=== PATIENT | female | born 1945 | race Two or more races ===

== ENCOUNTER 2019-02-21 22:05 | Emergency (ER) | payer SELFPAY ==
[~2019-02-21] VITALS: Ht 172.7 cm; Wt 68.0 kg
[2019-02-21] MEDS ORDERED: Tetanus/Diptheria/Pertussis IM ONE (22:15)
[2019-02-21 22:20] VITALS: BP 151/73
--- NOTE | 2019-02-21 22:20 | NUR ---
ED Nurse Note: PT EDGARForrest DON RA [id number] FROM HOME C/O MECHANICAL FALL. PT PRESENTS WITH RIGHT FACE ABRASION AND LACERATION ON THE MEDIAL FOREHEAD. DENIES LOC. PT VSS, NAD. FAMILY AT BEDSIDE. WILL CONTINUE TO MONITOR PATIENT.
--- NOTE | 2019-02-21 23:00 | NUR ---
ED Nurse Note: PT WENT TO CT ACCOMPANIED BY DIVISION ENGINEER VIA WHEELCHAIR.
--- NOTE | 2019-02-21 23:15 | NUR ---
ED Nurse Note: ERMD AT BEDSIDE PERFORMING WOUND DERMABOND APPLIANCE. CLEANED, OPENED, AND PREPPED FOR ERMD.
--- NOTE | 2019-02-21 23:15 | NUR ---
ED Nurse Note: PT BACK FROM CT ACCOMPANIED BY HEEL SPRAYER FIRST VIA WHEELCHAIR.
--- NOTE | 2019-02-21 23:17 | Diagnostic Imaging Report ---
EXAM: CT Head Without Intravenous Contrast CLINICAL HISTORY: PAIN TECHNIQUE: Axial computed tomography images of the head/brain without intravenous contrast. CTDI is 63 mGy and DLP is 1364 mGy-cm. One or more of the following dose reduction techniques were used: automated exposure control, adjustment of the mA and/or kV according to patient size, use of iterative reconstruction technique. COMPARISON: No relevant prior studies available. FINDINGS: Brain: Mild periventricular chronic small vessel disease. Negative for mass, mass-effect or intracranial hemorrhage. Ventricles: Unremarkable. No ventriculomegaly. Bones/joints: Unremarkable. No acute fracture. Soft tissues: Right frontal soft tissue swelling with scalp hematoma, foci of soft tissue gas and a tiny superficial radiopaque foreign body. Sinuses: Unremarkable as visualized. No acute sinusitis. Mastoid air cells: Unremarkable as visualized. No mastoid effusion. IMPRESSION: No acute intracranial abnormality.
--- NOTE | 2019-02-21 23:20 | NUR ---
ED Nurse Note: DR. ELIZABETH REQUESTED FOR A SECOND DERMABOND, STATING "OVERRIDE FOR ONE MORE DERMABOND". OVERRIDE PYXIS FOR SECOND DERMABOND AND GAVE TO DR. ELIZABETH.
--- NOTE | 2019-02-21 23:26 | Diagnostic Imaging Report ---
EXAM: CT Maxillofacial Without Intravenous Contrast CLINICAL HISTORY: PAIN TECHNIQUE: Axial computed tomography images of the face without intravenous contrast. CTDI is 24 mGy and DLP is 564 mGy-cm. One or more of the following dose reduction techniques were used: automated exposure control, adjustment of the mA and/or kV according to patient size, use of iterative reconstruction technique. COMPARISON: No relevant prior studies available. FINDINGS: Bones/joints: No acute fracture. Soft tissues: Right frontal soft tissue injury including swelling, foci of gas and hematoma with tiny radiopaque foreign body superficial lung the anterior margin of the soft tissue swelling. There is also moderate right periorbital and right facial soft tissue swelling. Orbits: Unremarkable. Sinuses: Unremarkable. No air-fluid levels. IMPRESSION: Soft tissue injuries on the right as above. Negative for fracture.
--- NOTE | 2019-02-21 23:41 | Emergency Room Report ---
History of Present Illness General Chief Complaint: Multiple Trauma/Fall Source: Patient Present Illness HPI 73-year-old female presents with mechanical fall hit forehead, no LOC no nausea no vomiting she endorses some head pain, no aggravating leaving factor severity is mild, patient presents for evaluation. Allergies: Coded Allergies: PENICILLINS (Verified Allergy, Unknown, 02/21/19) Patient History Past Medical History: see triage record Reviewed Nursing Documentation: PMH: Agreed; PSxH: Agreed Nursing Documentation-PMH Past Medical History: No Stated History Review of Systems All Other Systems: negative except mentioned in HPI Physical Exam Vital Signs Date Time Temp Pulse Resp B/P (MAP) Pulse Ox O2 Delivery O2 Flow Rate FiO2 02/21/19 22:10 99.0 94 14 162/76 (104) 96 Room Air Sp02 EP Interpretation: reviewed, normal General Appearance: well appearing, no apparent distress, alert Head: normocephalic, other - 3 cm laceration right forehead, abrasions over face Eyes: bilateral eye PERRL, bilateral eye EOMI ENT: uvula midline, moist mucus membranes Neck: supple, thyroid normal, supple/symm/no masses Respiratory: lungs clear, no respiratory distress, no retraction, no accessory muscle use Cardiovascular #1: normal peripheral pulses, regular rate, rhythm, no edema, no gallop, no murmur Gastrointestinal: non tender, soft, no guarding, no rebound Musculoskeletal: normal inspection Neurologic: alert, oriented x3 Psychiatric: mood/affect normal Skin: no rash, warm/dry Procedures Laceration/Wound Repair Laceration/Wound Repair : Consent: Verbal Wound Location: head Wound's Depth, Shape: superficial Wound Length (cm): 3 Wound Explored: clean Irrigated w/ Saline (ccs): 50 Wound Repaired With: Dermabond Patient Tolerated: Well Complications: None Medical Decision Making Diagnostic Impression: Primary Impression: Fall Qualified Codes: W19.XXXA - Unspecified fall, initial encounter Additional Impressions: Closed head injury Qualified Codes: S09.90XA - Unspecified injury of head, initial encounter Forehead laceration Qualified Codes: S01.81XA - Laceration without foreign body of other part of head, initial encounter ER Course 73-year-old female presents with forehead laceration, repaired with Dermabond, patient with mechanical fall, closed head injury, CT head negative for acute processes, CT face negative for acute processes Disposition home with return precautions CT/MRI/US Diagnostic Results CT/MRI/US Diagnostic Results : Impression FINDINGS: Brain: Mild periventricular chronic small vessel disease. Negative for mass, mass-effect or intracranial hemorrhage. Ventricles: Unremarkable. No ventriculomegaly. Bones/joints: Unremarkable. No acute fracture. Soft tissues: Right frontal soft tissue swelling with scalp hematoma, foci of soft tissue gas and a tiny superficial radiopaque foreign body. Sinuses: Unremarkable as visualized. No acute sinusitis. Mastoid air cells: Unremarkable as visualized. No mastoid effusion. IMPRESSION: No acute intracranial abnormality. IMPRESSION: Soft tissue injuries on the right as above. Negative for fracture. Dictated By: Mj Calvert DO Electronically Signed By: Mj Calvert DO Signed Date/Time 02/21/19 2808 CC: Cleveland Rosa MD Dictated By: Mj Calvert DO Electronically Signed By: Mj Calvert DO Signed Date/Time 02/21/19 2313 CC: Cleveland Rosa MD Last Vital Signs Date Time Temp Pulse Resp B/P (MAP) Pulse Ox O2 Delivery O2 Flow Rate FiO2 02/21/19 22:10 99.0 94 14 162/76 (104) 96 Room Air Disposition: HOME, SELF-CARE Condition: Stable Scripts No Active Prescriptions or Reported Meds Referrals: [facility] Ankit Samuel. [facility] Patient Instructions: Facial Laceration, [id number], Head Injury, Adult, Easy -to-Read Additional Instructions: The patient was provided with discharge instructions, notified to follow-up with a primary care doctor and or specialist in the next 24-48 hours, and to return to the ED if they have worsening of their symptoms. Please note that this report is being documented using [employer] technology. This can lead to erroneous entry secondary to incorrect interpretation by the dictating instrument. Cleveland Rosa MD Feb 21, 2019 23:41
[2019-02-22] VITALS: BP 132/71
--- NOTE | 2019-02-22 | NUR ---
ER DISCHARGE NOTE: Patient is cleared to be discharged per ERMD, pt is aox4, on room air, with stable vital signs. pt was given dc and prescription instructions, pt was able to verbalize understanding, pt id band removed without complications. pt is able to ambulate with steady gait. pt took all belongings accompanied by family member.
== END 2019-02-22 | disposition home or self-care (01) ==
LOC: EDBD 22:05 → EMR 02-22
DX: S01.81XA Laceration without foreign body of other part of head, initial encounter (principal); S09.90XA Unspecified injury of head, initial encounter; Z88.0 Allergy status to penicillin; W19.XXXA Unspecified fall, initial encounter; Y92.9 Unspecified place or not applicable; Z23 Encounter for immunization
CPT/HCPCS: 70450; 70486; 90471; 90715; 99284